=== PATIENT | female | born 1935 | race Caucasian/White ===

== ENCOUNTER 2022-04-13 13:02 | Inpatient (IN) | payer MEDICARE, BC ==
[~2022-04-13] VITALS: Ht 154.9 cm; Wt 97.1 kg
[2022-04-13] MEDS ORDERED: TEMAZEPAM 7.5 MG CAPSULE PO PRN (13:30)
[2022-04-13] MEDS ORDERED: MAG HYDROX/AL HYDROX/SIMETH 30 ML LIQUID UDC PO PRN (13:30)
[2022-04-13] MEDS ORDERED: MAGNESIUM HYDROXIDE 30 ML LIQUID UDC PO PRN (13:30)
[2022-04-13] MEDS ORDERED: ACETAMINOPHEN 325 MG TABLET PO PRN (13:30)
[2022-04-13] MEDS ORDERED: FURO-152 PO (13:45)
[2022-04-13] MEDS ORDERED: LISI1TAB55 PO (13:45)
[2022-04-13] MEDS ORDERED: CEPH500C2 PO (13:45)
[2022-04-13] MEDS ORDERED: RIVA20TA PO (13:45)
--- NOTE | 2022-04-13 14:21 | NUR ---
Pt arrived to unit at this time as a direct admit from [facility] ER in [place] approved by BISHOP Cannon. Pt has not been medically cleared by our hospital ER. Arrived on ambulance gurney accompanied by 3 microsoft architect. Pt on a 72hr hold for GD due to increase confusion and paranoia. Pt is calm and cooperative. Pleasant upon approach. Pt states she is admitted to the psychiatric unit "because i guess i ramble too much and can get confused, but otherwise, im not really sure." Denies suicidal and homicidal ideations. Contracts for safety at this time. Denies pain or discomfort. Able to make all need known. In no acute distress.
[2022-04-13] MEDS: HYDROCHLOROTHIAZIDE 12.5 MG CAPSULE PO SCH (15:11)
[2022-04-13] MEDS: CEphaleXIN 500 MG CAPSULE PO SCH ×2 (15:11→20:24)
[2022-04-13 16:23] VITALS: BP 157/68
[2022-04-13] MEDS: ENSURE ENLIVE (VAN) 240 ML LIQUID PO SCH (16:39)
[2022-04-13] MEDS: RIVAROXABAN 10 MG TABLET PO SCH (17:25)
[2022-04-13 20:17] VITALS: BP 118/31
--- NOTE | 2022-04-14 02:19 | NUR ---
The patient is up and down during the night. A few times incontinent of urine. Request to watch TV at this time. The patient refuses PRN medications, but has been compliant with the antibiotic ordered for a UTI. The patient talks to herself, and is noted as slightly forgetful. The patient has not verbalized any delusion thoughts so far. Her affect is bright, but her insight as to why she is here is poor and the patient is disorganized and needs frequent reorientation and redirection. Safety stratiges are in place. Assistance is provided with ADLs.
[2022-04-14 07:32] LABS: BILIRUBIN,TOTAL 0.4 mg/dL (0.2-1.0); CREATININE 1.3 mg/dL (0.6-1.3); POTASSIUM 4.7 mmol/L (3.5-5.1); TOTAL PROTEIN, SERUM 6.9 g/dL (6.4-8.2)
[2022-04-14 07:55] VITALS: BP 151/53
[2022-04-14] MEDS: ENSURE ENLIVE (VAN) 240 ML LIQUID PO SCH ×2 (08:10→16:28)
[2022-04-14] MEDS: CEphaleXIN 500 MG CAPSULE PO SCH ×3 (08:10→16:28)
[2022-04-14] MEDS: LORAZEPAM 0.5 MG TABLET PO PRN (08:10)
[2022-04-14] MEDS: FUROSEMIDE 20 MG TABLET PO SCH (08:25)
[2022-04-14] MEDS: LISINOPRIL 20 MG TABLET PO SCH (08:26)
[2022-04-14] MEDS: HYDROCHLOROTHIAZIDE 12.5 MG CAPSULE PO SCH (09:30)
[2022-04-14] MEDS ORDERED: METO-356 PO (09:58)
[2022-04-14] MEDS: METOPROLOL SUCCINATE XL 25 MG TAB.SR.24H PO SCH (11:40)
[2022-04-14 17:45] VITALS: BP 144/51
[2022-04-14] MEDS: RIVAROXABAN 10 MG TABLET PO SCH (17:58)
--- NOTE | 2022-04-14 19:54 | NUR ---
RECEIVED PATIENT IN HER ROOM IN BED. SHE IS NOTED A/O X 2. SHE IS HYPERVERBAL, ANXIOUS AND AGITATED. POOR INSIGHT AND JUDGMENT IS NOTED TO THE REASON FOR HER ADMISSION TO MHU, STATED, "I DON'T WANT TO BE HERE. I DON'T NEED TO BE HERE. I AM LEAVING RIGHT NOW, CALL THE GALO THE BROUGHT ME HERE, TELL HIM I AM READY TO LEAVE". PATIENT REQUIRES REALITY CHECKS AND CONSTANT REDIRECTIONS. SHE STATED, "I WAS JUST A BIT LOUD, WHY MY DAUGHTER LEFT ME HERE?". PATIENT WAS REASSURED AND REDIRECTED. PO PRN ATIVAN WAS OFFERED BUT PATIENT DECLINED. WILL CONTINUE TO REASSURED PATIENT FOR HER SAFETY. SAFETY AND FALL PRECAUTIONS ARE IN PLACE. HIS V/S ARE STABLE. WILL CONTINUE TO MONITOR.
[2022-04-14 20:27] VITALS: BP 124/50
--- NOTE | 2022-04-15 00:45 | NUR ---
patient noted walking around her room, she is talking to herself. she is combing her hair and brushing her teeth. she thinks that it is 5am and that someone is going to pick her up at take her home. When redirected patient stated, "okay i will go to bed for i can't go back to sleep. i will wait here". patient was offered a "sleeping pill; however, he refused. she was advised that is only 1230am and that she needs to sleep. she agreed. will continue to monitor.
--- NOTE | 2022-04-15 06:27 | NUR ---
PATIENT SLEPT FOR APPROX 2.30 HRS THROUGH THE NIGHT. SHE WAS OBSERVED SITTING IN A CHAIR IN HER ROOM TALKING TO HERSELF. SHE HAS IMPAIRED INSIGHT AND JUDGMENT INTO HER ADMISSION INTO MHU. SHE APPEARS TO SUNDOWN. SHE STATED, "I NEED TO CALL THE [facility] SO THEY CAN COME AND PICK ME UP". "I DON'T NEED TO BE HERE. I WAS JUST LOUD AND THAT IS WHY MY DAUGHTER BROUGHT ME HERE BUT THIS IS THE WAY I TALK. DON'T YOU WANT TO RID OF ME, JUST CALL THE [facility] DO THEY CAN PICK ME UP AND TAKE ME HOME". PATIENT REQUIRED MULTIPLE REDIRECTION AND REASSURANCE. SHE PO PRN MEDICATION FOR INSOMNIA. WILL CONTINUE TO MONITOR.
[2022-04-15 07:30] VITALS: BP 140/62
[2022-04-15] MEDS: LISINOPRIL 20 MG TABLET PO SCH (08:45)
[2022-04-15] MEDS: FUROSEMIDE 20 MG TABLET PO SCH (08:45)
[2022-04-15] MEDS: CEphaleXIN 500 MG CAPSULE PO SCH ×3 (08:45→16:28)
[2022-04-15] MEDS: HYDROCHLOROTHIAZIDE 12.5 MG CAPSULE PO SCH (08:45)
[2022-04-15] MEDS: METOPROLOL SUCCINATE XL 25 MG TAB.SR.24H PO SCH (08:46)
[2022-04-15] MEDS: ENSURE ENLIVE (VAN) 240 ML LIQUID PO SCH ×2 (08:47→16:28)
--- NOTE | 2022-04-15 14:39 | NUR ---
LISA Initial Discharge Note: Pt currently resides at [address] [place] [address] ([phone]). LISA spoke with pt's daughter, Jen ([phone]) who stated that she is agreeable for pt to discharge to a residential facility. Jen asked for a facility near her home. LISA stated she can refer pt to [facility] in the same city. Jen is aware and agreeable. LISA informed Jen this casualty underwriter will confirm with Jen for pt's acceptance prior to discharge. LISA will continue to work with pt, Jen, and to ensure a safe and proper discharge plan.
[2022-04-15 15:07] VITALS: BP 160/47
[2022-04-15] MEDS: RIVAROXABAN 10 MG TABLET PO SCH ×2 (16:37→17:01)
[2022-04-15] MEDS: LORAZEPAM 0.5 MG TABLET PO PRN (17:40)
--- NOTE | 2022-04-15 17:52 | NUR ---
Received patient is AAO x3 verbalizer needs known ,selected medication , on antibiotic for UTI . patient believe she not belong here will be discharged home today.got agitated when she was told will placed on 5250 hold. Ativan given as ordered ,family at bedside visited .
[2022-04-15 20:00] VITALS: BP 123/35
--- NOTE | 2022-04-16 04:41 | NUR ---
GPS NOTES: Received patient in the dayroom, she is calm and quiet upon approached. She is forgetful, she is also at times talking to herself. She was offered PRN meds but refused. She slept most of the shift with no issues noted. Frequent monitoring observed for safety
[2022-04-16 08:30] VITALS: BP 130/57
[2022-04-16] MEDS: HYDROCHLOROTHIAZIDE 12.5 MG CAPSULE PO SCH (09:00)
[2022-04-16] MEDS: METOPROLOL SUCCINATE XL 25 MG TAB.SR.24H PO SCH (09:00)
[2022-04-16] MEDS: FUROSEMIDE 20 MG TABLET PO SCH (09:00)
[2022-04-16] MEDS: CEphaleXIN 500 MG CAPSULE PO SCH ×3 (09:00→17:22)
[2022-04-16] MEDS: LISINOPRIL 20 MG TABLET PO SCH (09:00)
[2022-04-16] MEDS: ENSURE ENLIVE (VAN) 240 ML LIQUID PO SCH ×2 (09:03→17:26)
--- NOTE | 2022-04-16 15:14 | NUR ---
Patient is only compliant with antibiotics, isolative, quiet, withdrawn, sociable when approached. Patient is self care. Emotional support provided. Fall and safety precautions implemented.
[2022-04-16 15:32] VITALS: BP 121/52
[2022-04-16] MEDS: RIVAROXABAN 10 MG TABLET PO SCH (17:37)
[2022-04-16 19:55] VITALS: BP 112/52
[2022-04-16] MEDS: DIVALPROEX 250 MG TABLET.DR PO SCH (20:19)
[2022-04-16] MEDS: DONEPEZIL 5 MG TABLET PO SCH (20:19)
--- NOTE | 2022-04-17 00:47 | NUR ---
Patient was compliant with the HS medications . It was endorsed from the dayshift that the patient has been refusing to take the Xarelto. This justowriter operator engaged in a long conversation with the patient and provided education and encouragement r/e the importance of not skipping that medication. The patient continued to refuse and made statement " I am 86 years old and I don't want to take any medications. My daughter wants me to take it , but I told her no and she had a fit." The patient does get forgetful and paranoid during the night. Safety stratiges are in place and continuing to monitor for compliance and to provide reorientation and reassurance when needed.
[2022-04-17 07:30] VITALS: BP 153/41
[2022-04-17] MEDS: CEphaleXIN 500 MG CAPSULE PO SCH ×3 (08:45→16:55)
[2022-04-17] MEDS: ENSURE ENLIVE (VAN) 240 ML LIQUID PO SCH ×2 (08:57→17:27)
[2022-04-17] MEDS: LISINOPRIL 20 MG TABLET PO SCH (08:57)
[2022-04-17] MEDS: FUROSEMIDE 20 MG TABLET PO SCH (08:57)
[2022-04-17] MEDS: DIVALPROEX 250 MG TABLET.DR PO SCH (08:57)
[2022-04-17] MEDS: HYDROCHLOROTHIAZIDE 12.5 MG CAPSULE PO SCH (08:57)
[2022-04-17] MEDS: METOPROLOL SUCCINATE XL 25 MG TAB.SR.24H PO SCH (08:58)
--- NOTE | 2022-04-17 10:35 | NUR ---
LISA Family Contact: SW spoke with pt's daughter, Jen ([phone]) and discussed pt's acceptance to [facility] located at [address] [place] [address] . Jen asked this public relations writer to also refer pt to [facility] ([phone]) for possible discharge plan. LISA stated she will discuss the discharge plan with the psychiatrist. Jen is aware and agreeable. Jen's questions and concerns were addressed.
--- NOTE | 2022-04-17 15:08 | NUR ---
Patient is pleasant, sociable, but only compliant with antibiotics. Pt. states "My BP is a little bit high but it's my normal range" "I don't need water pill. I go to the bathroom many times. It's enough" "I don't need Psych medications because my mind is cleared" "I don't need blood thinners. I don't have that problem anymore" Patient is in denial about her health. Patient is encourage to verbalize concerns. Fall and safety precautions implemented.
[2022-04-17 16:00] VITALS: BP 165/40
[2022-04-17] MEDS: RIVAROXABAN 10 MG TABLET PO SCH (17:38)
[2022-04-17 20:00] VITALS: BP 167/64
[2022-04-17] MEDS: DONEPEZIL 5 MG TABLET PO SCH (20:40)
[2022-04-17] MEDS: DIVALPROEX SPRINKLE 125 MG CAP.SPRINK PO SCH (21:00)
--- NOTE | 2022-04-18 05:20 | NUR ---
GPS NOTES: Patient is pleasant and cheerful when approached, forgetful at times. She refused depakote, said she doesn't need it and will talk to psychiatrist in the AM. Educated patient on the importance of med compliance. She still refused. She is selective with medications. She is self care and able to make her needs known. She slept well during shift. Closely monitoring observed.
[2022-04-18 07:30] VITALS: BP 144/48
[2022-04-18] MEDS: CEphaleXIN 500 MG CAPSULE PO SCH (08:39)
[2022-04-18] MEDS: LISINOPRIL 20 MG TABLET PO SCH (08:39)
[2022-04-18] MEDS: FUROSEMIDE 20 MG TABLET PO SCH (08:39)
[2022-04-18] MEDS: METOPROLOL SUCCINATE XL 25 MG TAB.SR.24H PO SCH (08:40)
[2022-04-18] MEDS: HYDROCHLOROTHIAZIDE 12.5 MG CAPSULE PO SCH (08:40)
[2022-04-18] MEDS: DIVALPROEX SPRINKLE 125 MG CAP.SPRINK PO SCH ×2 (08:57→21:00)
[2022-04-18] MEDS: ENSURE ENLIVE (VAN) 240 ML LIQUID PO SCH (08:58)
--- NOTE | 2022-04-18 12:19 | NUR ---
Gps/Customer Engagement Representative- Pleasant affect , stayed in the dinning room during meal , Dr Oliver was informed patient refusing to take depakote sprinkles as ordered, per patient she want Psychiatrist to talked to her daughter first. No behavioral issues noted had been cooperative and pleasant with the staff, interacting with her selected peers.
[2022-04-18] MEDS: GLUCERNA SHAKE 237 ML CAN PO SCH (13:37)
[2022-04-18] MEDS: PROTEIN SUPPLEMENT (PROSTAT) 30 ML LIQUID PO SCH ×2 (13:38→17:26)
--- NOTE | 2022-04-18 15:36 | NUR ---
Firearms Report: Bacteriologist Dairy completed and submitted a [employer] firearms report for 5150 grave disability certifications. A copy of report has been placed in patient chart.
--- NOTE | 2022-04-18 15:48 | NUR ---
LISA Family Contact: SW left a voicemail for pt's daughter, Jen ([phone]) for a call back regarding pt's treatment and discharge plan. LISA will continue to follow-up.
[2022-04-18 16:00] VITALS: BP 92/56
[2022-04-18] MEDS: RIVAROXABAN 10 MG TABLET PO SCH (17:44)
--- NOTE | 2022-04-18 17:45 | NUR ---
Gps/Pocket Stitcher- Explained and reviewed xarelto med. pt. refused, claimed she does not need it anymore, will informed .
[2022-04-18 20:14] VITALS: BP 161/50
[2022-04-18] MEDS: DONEPEZIL 5 MG TABLET PO SCH (21:00)
--- NOTE | 2022-04-18 22:30 | NUR ---
Received patient in her room sitting in a chair reading a book. she is noted A/O x 2, upon approached, she is hyperverbal. she stated, "I met with the county court judge on the computer screen. they say i don't sleep but i just get up to pee because i take my water pill so i need to use the toilet often at night but then i go back to bed. i don't understand why they keep me here. Any way, I know they mean well. My nephew was here today, he brought some clothes for me and i am happy..." Patient has a poor insight and judgment as to her admission to MHU. She refused Aricept and Depakote QHS. she stated, "i don't need those medications, i am fine". Patient was reassured for her safety. safety and fall precautions are in place. her V/S are stable, patient in no distress. SHe was given PO Fluids and snacks. she was later observed in the dinning area plying cards with two other clients. will continue to monitor.
[2022-04-19 07:30] VITALS: BP 154/59
[2022-04-19] MEDS: DIVALPROEX SPRINKLE 125 MG CAP.SPRINK PO SCH ×2 (09:00→21:00)
[2022-04-19] MEDS: PROTEIN SUPPLEMENT (PROSTAT) 30 ML LIQUID PO SCH ×2 (09:00→17:00)
[2022-04-19] MEDS: FUROSEMIDE 20 MG TABLET PO SCH (09:00)
[2022-04-19] MEDS: METOPROLOL SUCCINATE XL 25 MG TAB.SR.24H PO SCH (09:01)
[2022-04-19] MEDS: HYDROCHLOROTHIAZIDE 12.5 MG CAPSULE PO SCH (09:01)
[2022-04-19] MEDS: LISINOPRIL 20 MG TABLET PO SCH (09:02)
[2022-04-19] MEDS: GLUCERNA SHAKE 237 ML CAN PO SCH (09:03)
[2022-04-19 09:56] LABS: HEMATOCRIT 33.9 % (31.2-41.9); MEAN CORPUSCULAR VOLUME 90.1 fL (75.5-95.3); PLATELET COUNT (AUTO) 171 K/uL (179-408)
[2022-04-19 11:27] LABS: ALANINE AMINOTRANSFERASE 31 U/L (14-59); ALKALINE PHOSPHATASE 91 U/L (50-136); ASPARTATE AMINOTRANSFERASE 18 U/L (15-37); BILIRUBIN,TOTAL 0.5 mg/dL (0.2-1.0); CARBON DIOXIDE 29 mmol/L (21-32); CHLORIDE 103 mmol/L (98-107); CREATININE 1.4 mg/dL (0.6-1.3); GLUCOSE 143 mg/dL (74-106); POTASSIUM 4.2 mmol/L (3.5-5.1); TOTAL PROTEIN, SERUM 6.7 g/dL (6.4-8.2); UREA NITROGEN, BLOOD 35 mg/dL (7-18)
--- NOTE | 2022-04-19 12:29 | NUR ---
Gps/Hopper Feeder- Stayed in the activity room most of the morning, playing dominos with her selected peers. remains with hesitancy taking routine meds, but able to take after explaining each one, except still refusing to take her depakote. Pleasant affect
[2022-04-19 15:25] VITALS: BP 145/48
[2022-04-19] MEDS: RIVAROXABAN 10 MG TABLET PO SCH (16:49)
[2022-04-19 20:26] VITALS: BP 128/47
[2022-04-19] MEDS: DONEPEZIL 5 MG TABLET PO SCH (21:00)
--- NOTE | 2022-04-20 00:33 | NUR ---
Received patient in the day room. she is playing doyle with other clients. she is noted A/O x 2 to 3, she is calm and pleasant upon approached, she stated, "I am doing fine". She continue refusing Aricept and Depakote QHS. she stated, "I sleep well. my memory is good. i don't see why i have to take these kind of medications". patient was informed of the importance to comply with her medication regiment to improved her condition. Patient was reassured for her safety. safety and fall precautions are in place. her V/S are stable, patient in no distress. SHe was given PO Fluids and snacks. will continue to monitor.
--- NOTE | 2022-04-20 06:53 | NUR ---
patient slept for approx. 6.15 hrs through the night. she was able to shower this morning. She continue denying SI/HI/VH/AH. will continue to monitor.
[2022-04-20 07:30] VITALS: BP 141/43
[2022-04-20] MEDS: DIVALPROEX SPRINKLE 125 MG CAP.SPRINK PO SCH ×2 (09:00→21:04)
[2022-04-20] MEDS: LISINOPRIL 20 MG TABLET PO SCH (09:04)
[2022-04-20] MEDS: HYDROCHLOROTHIAZIDE 12.5 MG CAPSULE PO SCH (09:05)
[2022-04-20] MEDS: FUROSEMIDE 20 MG TABLET PO SCH (09:05)
[2022-04-20] MEDS: METOPROLOL SUCCINATE XL 25 MG TAB.SR.24H PO SCH (09:06)
[2022-04-20] MEDS: PROTEIN SUPPLEMENT (PROSTAT) 30 ML LIQUID PO SCH ×2 (09:07→17:00)
[2022-04-20] MEDS: GLUCERNA SHAKE 237 ML CAN PO SCH (09:08)
[2022-04-20 16:00] VITALS: BP 124/40
--- NOTE | 2022-04-20 16:23 | NUR ---
Gps/Per Diem Clerk- Lorena Hernandez CAR OILER, was in to see patient informed of patient's continued refusal to take xarelto po , aware of of patients' history of PE. Patient continue to interact with her selected peers, attended her group therapy, stayed in the activity room most of the day , making her needs known . Pleasant affect .
[2022-04-20] MEDS: RIVAROXABAN 10 MG TABLET PO SCH ×2 (18:00→21:02)
[2022-04-20 20:00] VITALS: BP 126/32
[2022-04-20] MEDS: DONEPEZIL 5 MG TABLET PO SCH (21:00)
--- NOTE | 2022-04-21 02:37 | NUR ---
Received patient at a table playing MoboFree with her peers. This senior copywriter, again, educated and encouraged the patient to take her PM medications. The patient was willing ,at that time,to take Xarelto and Depakote. This senior copywriter continues to offer support and assistance to the patient when needed. Positive reinforcement provided. Safety Stratiges are in place, and continuing to monitor the patients compliance.
[2022-04-21 07:30] VITALS: BP 126/39
[2022-04-21] MEDS: PROTEIN SUPPLEMENT (PROSTAT) 30 ML LIQUID PO SCH ×2 (09:00→17:00)
[2022-04-21] MEDS: METOPROLOL SUCCINATE XL 25 MG TAB.SR.24H PO SCH (09:00)
[2022-04-21] MEDS: DIVALPROEX SPRINKLE 125 MG CAP.SPRINK PO SCH ×2 (09:00→21:36)
[2022-04-21] MEDS: GLUCERNA SHAKE 237 ML CAN PO SCH (09:45)
[2022-04-21] MEDS: FUROSEMIDE 20 MG TABLET PO SCH (09:45)
[2022-04-21] MEDS: LISINOPRIL 20 MG TABLET PO SCH (09:45)
[2022-04-21] MEDS: HYDROCHLOROTHIAZIDE 12.5 MG CAPSULE PO SCH (09:45)
--- NOTE | 2022-04-21 15:58 | NUR ---
Gps/Head Soft Sugar Operator- Patients' daughter Naila Arriaga ([phone] came in to visit, brought more depends diapers and toiletries. Informed daughter patient had been inconsistent taking her routine med.. (xarelto ) reviewed with patient remy importance of her medications, verbalized understanding , she wants to make sure her Primary Medical Doctor (Dr Bernabe Abreu) [phone] is aware of her routine medications. Daughter also wants to talk to Dr Oliver , informed will make sure he gets her message.
[2022-04-21 16:00] VITALS: BP 141/46
[2022-04-21] MEDS: RIVAROXABAN 10 MG TABLET PO SCH (17:37)
[2022-04-21 20:18] VITALS: BP 113/48
[2022-04-21] MEDS: DONEPEZIL 5 MG TABLET PO SCH (21:00)
[2022-04-22 07:30] VITALS: BP 129/51
[2022-04-22] MEDS: DIVALPROEX SPRINKLE 125 MG CAP.SPRINK PO SCH ×2 (08:39→20:41)
[2022-04-22] MEDS: FUROSEMIDE 20 MG TABLET PO SCH (08:39)
[2022-04-22] MEDS: LISINOPRIL 20 MG TABLET PO SCH (08:40)
[2022-04-22] MEDS: HYDROCHLOROTHIAZIDE 12.5 MG CAPSULE PO SCH (08:40)
[2022-04-22] MEDS: METOPROLOL SUCCINATE XL 25 MG TAB.SR.24H PO SCH (08:41)
[2022-04-22] MEDS: PROTEIN SUPPLEMENT (PROSTAT) 30 ML LIQUID PO SCH ×2 (08:42→17:39)
[2022-04-22] MEDS: GLUCERNA SHAKE 237 ML CAN PO SCH (08:42)
--- NOTE | 2022-04-22 11:49 | NUR ---
SW SNF Referral: Physical Security Engineer faxed patient's referral packet including: History and Physical, Consultation, Progress Notes, Medication List and Labs to the following facilities for review and possible mcc placement per pt's daughterJen's request ([phone]): [facility] ([phone]) and spoke with Gianluca in admissions. F: [phone].
--- NOTE | 2022-04-22 15:38 | NUR ---
LISA Family Contact: LISA spoke with pt's daughter, Jen ([phone]) and discussed pt's pending acceptance to [facility] ([phone]). LISA stated this screen writer spoke with Gianluca in admissions who stated the file is still being reviewed. Jen is aware and agreeable.
[2022-04-22 15:40] VITALS: BP 135/52
--- NOTE | 2022-04-22 15:48 | NUR ---
GPS: Nursing Notes: Thought Disorder: Patient is awake and responding to her name, cooperative with nursing care, participating in therapeutic groups, interactive with her peers, following staff directions, stated "I am feeling fine..", compliant with her medications, A/Ox4, properly groomed, brighter affect, needs minimal assistance with ADL's, continue to monitor for safety, unable to formulate a viable plan for self care, continue with treatment plan.
[2022-04-22] MEDS: RIVAROXABAN 10 MG TABLET PO SCH (17:39)
[2022-04-22 20:14] VITALS: BP 113/63
[2022-04-22] MEDS: DONEPEZIL 5 MG TABLET PO SCH (20:41)
--- NOTE | 2022-04-23 06:29 | NUR ---
GPS: Pt.slept 6.30 last night. Calm,pleasant at this time. Denies SI/HI. Safe environment provided. Will continue to monitor.
[2022-04-23 07:30] VITALS: BP 149/58
[2022-04-23] MEDS: METOPROLOL SUCCINATE XL 25 MG TAB.SR.24H PO SCH (09:17)
[2022-04-23] MEDS: FUROSEMIDE 20 MG TABLET PO SCH (09:26)
[2022-04-23] MEDS: HYDROCHLOROTHIAZIDE 12.5 MG CAPSULE PO SCH (09:26)
[2022-04-23] MEDS: LISINOPRIL 20 MG TABLET PO SCH (09:26)
[2022-04-23] MEDS: DIVALPROEX SPRINKLE 125 MG CAP.SPRINK PO SCH ×2 (09:26→20:17)
[2022-04-23] MEDS: PROTEIN SUPPLEMENT (PROSTAT) 30 ML LIQUID PO SCH ×2 (09:27→16:23)
[2022-04-23] MEDS: GLUCERNA SHAKE 237 ML CAN PO SCH (09:27)
[2022-04-23 16:56] VITALS: BP 141/62
[2022-04-23] MEDS: RIVAROXABAN 10 MG TABLET PO SCH (17:09)
--- NOTE | 2022-04-23 17:47 | NUR ---
GPS: Nursing Notes: Thought Disorder: Patient is awake and responding to her name, cooperative with nursing care, compliant with her medications, interactive with peers, participating in therapeutic groups, brighter affect, A/Ox3, properly groomed, unable to formulate a viable plan for self care, continue to monitor for safety, continue with treatment plan.
[2022-04-23 20:07] VITALS: BP 116/50
[2022-04-23] MEDS: DONEPEZIL 5 MG TABLET PO SCH (20:17)
[2022-04-24 07:30] VITALS: BP 134/46
[2022-04-24] MEDS: PROTEIN SUPPLEMENT (PROSTAT) 30 ML LIQUID PO SCH ×2 (09:00→17:00)
[2022-04-24] MEDS: GLUCERNA SHAKE 237 ML CAN PO SCH (09:00)
--- NOTE | 2022-04-24 10:47 | NUR ---
LISA Family Contact: LISA returned pt's daughter's, Jen's ([phone]) call and discussed pt's pending acceptance to [facility] ([phone]). LISA stated this fiction and nonfiction writer prose received a call from Gianluca in admissions who stated he is waiting for an answer from the director of marketing, Monika. Jen is aware the acceptance is pending. Jen informed this fiction and nonfiction writer prose that she would like to speak to the assigned psychiatrist tomorrow morning. Jen informed this fiction and nonfiction writer prose that she will be bringing a document from her chronometer assembler and adjuster stating that the pt is no longer able to take care of her own matters. This SW informed Jen that this fiction and nonfiction writer prose will communicate her request to the psychiatrist in the morning and update her.
[2022-04-24] MEDS: FUROSEMIDE 20 MG TABLET PO SCH (11:29)
[2022-04-24] MEDS: DIVALPROEX SPRINKLE 125 MG CAP.SPRINK PO SCH ×2 (11:29→20:08)
[2022-04-24] MEDS: LISINOPRIL 20 MG TABLET PO SCH (11:31)
[2022-04-24] MEDS: METOPROLOL SUCCINATE XL 25 MG TAB.SR.24H PO SCH (11:41)
[2022-04-24] MEDS: HYDROCHLOROTHIAZIDE 12.5 MG CAPSULE PO SCH (11:41)
[2022-04-24 16:00] VITALS: BP 126/36
[2022-04-24] MEDS: RIVAROXABAN 10 MG TABLET PO SCH (18:08)
[2022-04-24] MEDS: DONEPEZIL 5 MG TABLET PO SCH (20:08)
[2022-04-24 21:09] VITALS: BP 117/52
--- NOTE | 2022-04-25 06:41 | NUR ---
GPS: Pt.slept 8.15 last night. Currently in dining room area watching TV. Denies pain when asked. No new behavioral problems exhibited. Safe environment provided. Will continue to monitor.
[2022-04-25 07:30] VITALS: BP 135/48
[2022-04-25] MEDS: PROTEIN SUPPLEMENT (PROSTAT) 30 ML LIQUID PO SCH ×2 (09:00→17:00)
[2022-04-25] MEDS: METOPROLOL SUCCINATE XL 25 MG TAB.SR.24H PO SCH (09:00)
[2022-04-25] MEDS: FUROSEMIDE 20 MG TABLET PO SCH (09:09)
[2022-04-25] MEDS: LISINOPRIL 20 MG TABLET PO SCH (09:10)
[2022-04-25] MEDS: HYDROCHLOROTHIAZIDE 12.5 MG CAPSULE PO SCH (09:11)
[2022-04-25] MEDS: DIVALPROEX SPRINKLE 125 MG CAP.SPRINK PO SCH ×2 (09:16→20:09)
[2022-04-25] MEDS: GLUCERNA SHAKE 237 ML CAN PO SCH (09:20)
--- NOTE | 2022-04-25 14:54 | NUR ---
Gps/Donor Services Technician- Attending her group therapy, participating, interacting with her peers. Idalmis PLANT MAINTENANCE WORKER in to see patient, informed pt. not taking metoprolod XL anymore., will review .
--- NOTE | 2022-04-25 15:36 | NUR ---
LISA Family Contact: LISA contacted pt's daughter's, Jen ([phone]) and left a voicemail regarding Jen's request of a letter of incompetence for the pt. LISA informed Jen in the voicemail that this senior copywriter discussed the request with this SW's director. LISA informed Jen that we have to wait to hear back from the Doctor. LISA also informed Jen that this senior copywriter is still waiting to hear back from [facility]. LISA stated that the director, Monika from [facility] stated they are reviewing and will contact this senior copywriter with updates by tomorrow morning. LISA stated that pt does also have [facility] as an additional accepting facility from previous discussion.
[2022-04-25 16:30] VITALS: BP 129/49
[2022-04-25] MEDS: RIVAROXABAN 10 MG TABLET PO SCH (17:15)
[2022-04-25] MEDS: DONEPEZIL 5 MG TABLET PO SCH (20:08)
[2022-04-25 20:28] VITALS: BP 151/44
--- NOTE | 2022-04-26 06:41 | NUR ---
GPS: Pt.slept 10.15 last night. Calm,cooperative and interacts with her peers. Re-assured and re-directed prn. Safe environment provided. Will continue to monitor.
[2022-04-26 07:30] VITALS: BP 134/49
[2022-04-26] MEDS: DIVALPROEX SPRINKLE 125 MG CAP.SPRINK PO SCH ×3 (08:10→20:36)
[2022-04-26] MEDS: LISINOPRIL 20 MG TABLET PO SCH (08:24)
[2022-04-26] MEDS: FUROSEMIDE 20 MG TABLET PO SCH (08:25)
[2022-04-26] MEDS: HYDROCHLOROTHIAZIDE 12.5 MG CAPSULE PO SCH (08:25)
[2022-04-26] MEDS: METOPROLOL SUCCINATE XL 25 MG TAB.SR.24H PO SCH (09:00)
[2022-04-26] MEDS: PROTEIN SUPPLEMENT (PROSTAT) 30 ML LIQUID PO SCH ×2 (09:00→16:49)
[2022-04-26] MEDS: GLUCERNA SHAKE 237 ML CAN PO SCH (09:02)
--- NOTE | 2022-04-26 14:56 | NUR ---
LISA Family Contact: LISA contacted pt's daughter's, Jen ([phone]) and discussed pt's updates. LISA stated that this selling underwriter has not yet heard from the contact center director, ([phone]). LISA informed Jen that this selling underwriter spoke with Monika this morning regarding the time sensitive importance of the facilities decision regarding the continuation of care for the pt at their memory care unit. Jen is aware this selling underwriter is still waiting after multiple attempts and voicemails. Jen provided an additional location called [facility] P:([phone]) F:([phone]) for this SW to refer the clinicals to for possible discharge lcoation on Friday. Jen is aware that pt has a discharge order of Friday to either a [facility] that accepts the pt or to [facility] that pt is already accepted to. LISA also informed Jen per her request that the pt's psychiatrist cannot sign a letter of incompetence due to the pt being competent at this time. LISA explained the residential facility process and informed Jen that she can change the pt's facility in the event that the pt is not adjusting well. Jen appeared understanding. Jen requested to speak with either Dr. Oliver or Dr. Godinez by Friday. LISA informed Jen that this selling underwriter will leave a note with nursing for the Doctor to be notified to contact Jen. Jen was appreciative of this writers time and assistance.
--- NOTE | 2022-04-26 15:53 | NUR ---
SNF Referral: Post Splitter faxed patient's referral packet including: History and Physical, Consultation, Progress Notes, Medication List and Labs to the following facilities for review and possible longterm placement: [facility] per pt's daughter Jen's request. P: ([phone]) F:[phone]).
--- NOTE | 2022-04-26 16:20 | NUR ---
Gps/Gini Yoo (pt's.daughter) called wants to make sure patient is not taking metoprolol anymore, , claimed it was stopped when she went to the Hospital, r/t HR was very low . Informed , Idalmis FREDERICK was informed of her concerns yesterday,. Patient did not received metoprolol today.
[2022-04-26 16:53] VITALS: BP 157/48
[2022-04-26] MEDS: RIVAROXABAN 10 MG TABLET PO SCH (17:36)
[2022-04-26 19:53] VITALS: BP 143/48
[2022-04-26] MEDS: DONEPEZIL 5 MG TABLET PO SCH (20:36)
--- NOTE | 2022-04-27 03:02 | NUR ---
Received patient in the day room working a puzzle. Alert and oriented. Medication compliant . Some assistants needed with ADLs. This patient appears less paranoid about taking medications and less forgetful than observed previously by this pattern chart writer. Safety stratiges are in place, possible discharge noted for Friday.
[2022-04-27 07:48] VITALS: BP 125/34
[2022-04-27] MEDS: DIVALPROEX SPRINKLE 125 MG CAP.SPRINK PO SCH ×2 (08:49→20:09)
[2022-04-27] MEDS: FUROSEMIDE 20 MG TABLET PO SCH (08:49)
[2022-04-27] MEDS: LISINOPRIL 20 MG TABLET PO SCH (08:50)
[2022-04-27] MEDS: HYDROCHLOROTHIAZIDE 12.5 MG CAPSULE PO SCH (08:50)
[2022-04-27] MEDS: GLUCERNA SHAKE 237 ML CAN PO SCH (08:50)
[2022-04-27] MEDS: PROTEIN SUPPLEMENT (PROSTAT) 30 ML LIQUID PO SCH ×2 (08:51→16:06)
[2022-04-27] MEDS: METOPROLOL SUCCINATE XL 25 MG TAB.SR.24H PO SCH (08:51)
--- NOTE | 2022-04-27 14:01 | NUR ---
GPS: Nursing Notes: Thought Disorder: Patient is awake and responding to her name, cooperative with nursing care, compliant with her medications, participating in therapeutic groups, interactive with peers, completed her puzzle game this AM, needs minimal assistance with ADL's, unable to formulate a viable plan for self care, continue to monitor for safety, continue with treatment plan.
[2022-04-27 16:26] VITALS: BP 154/44
[2022-04-27] MEDS: RIVAROXABAN 10 MG TABLET PO SCH (17:04)
[2022-04-27 19:59] VITALS: BP 157/50
[2022-04-27] MEDS: DONEPEZIL 5 MG TABLET PO SCH (20:09)
--- NOTE | 2022-04-28 04:44 | NUR ---
Patient slept 5.30 hours. Up early for a shower. No changes from the previous night. Safety stratiges in place .
[2022-04-28 07:41] VITALS: BP 140/38
[2022-04-28] MEDS: GLUCERNA SHAKE 237 ML CAN PO SCH (08:52)
[2022-04-28] MEDS: HYDROCHLOROTHIAZIDE 12.5 MG CAPSULE PO SCH ×2 (08:52→12:29)
[2022-04-28] MEDS: FUROSEMIDE 20 MG TABLET PO SCH (08:52)
[2022-04-28] MEDS: LISINOPRIL 20 MG TABLET PO SCH ×2 (08:52→12:30)
[2022-04-28] MEDS: DIVALPROEX SPRINKLE 125 MG CAP.SPRINK PO SCH ×2 (08:52→20:05)
[2022-04-28] MEDS: PROTEIN SUPPLEMENT (PROSTAT) 30 ML LIQUID PO SCH ×2 (08:53→17:14)
[2022-04-28] MEDS: METOPROLOL SUCCINATE XL 25 MG TAB.SR.24H PO SCH (08:53)
--- NOTE | 2022-04-28 11:32 | NUR ---
GPS: Nursing Notes: 5250 [facility] Request: Staff give a copy of 5250 to patient, Staff explained 5250. Staff informed patient that a certification review hearing will be held within four days and patient's rights advocate will call to provide assistance and preparing her for the hearing. The court has been notified of 5250 via [employer] on this day. Addendum: 04/29/22 at 1022 by ALEX HO LVN GPS: Nursing Notes: 5270 [facility] Request: Above charting is wrong, the request is for 5270 [facility], requested via [employer] on 04/28/22 at 11:32.
--- NOTE | 2022-04-28 13:36 | NUR ---
GPS: Nursing Notes: Thought Disorder: Patient is awake and responding to her name, cooperative with nursing care, compliant with her medications, following staff directions, participating in therapeutic groups, A/Ox3, interactive with her peers, unable to formulate a viable plan for self care, continue to monitor for safety, continue with treatment plan.
[2022-04-28 16:08] VITALS: BP 138/40
[2022-04-28] MEDS: RIVAROXABAN 10 MG TABLET PO SCH (17:15)
[2022-04-28 19:46] VITALS: BP 120/42
[2022-04-28] MEDS: DONEPEZIL 5 MG TABLET PO SCH (20:05)
--- NOTE | 2022-04-29 06:50 | NUR ---
GPS: Pt.slept 6.30 last night. Calm and cooperative with her plan of care. No new behavioral problems exhibited. Safe environment provided. Re-assured prn.
[2022-04-29 07:28] VITALS: BP 144/47
[2022-04-29] MEDS: FUROSEMIDE 20 MG TABLET PO SCH (08:31)
[2022-04-29] MEDS: DIVALPROEX SPRINKLE 125 MG CAP.SPRINK PO SCH ×2 (08:31→20:24)
[2022-04-29] MEDS: GLUCERNA SHAKE 237 ML CAN PO SCH (08:31)
[2022-04-29] MEDS: LISINOPRIL 20 MG TABLET PO SCH (08:31)
[2022-04-29] MEDS: HYDROCHLOROTHIAZIDE 12.5 MG CAPSULE PO SCH (08:31)
[2022-04-29] MEDS: PROTEIN SUPPLEMENT (PROSTAT) 30 ML LIQUID PO SCH ×2 (08:32→17:23)
[2022-04-29] MEDS: METOPROLOL SUCCINATE XL 25 MG TAB.SR.24H PO SCH (08:32)
--- NOTE | 2022-04-29 10:05 | NUR ---
LISA Family Contact: LISA returned pt's daughter's, Jen's call ([phone]) and discussed pt's current status and discharge update. LISA informed Jen that this selling underwriter will refer pt to the locations that Jen provided for this SW in previous voicemail. LISA informed Jen that this selling underwriter will update her by the end of today with a discharge update. LISA informed Jen that if the pt does not accepted to the following referrals given by Jen, the pt still has the accepting facility to [facility] as previously agreed by Jen. LISA stated that at discharge, if pt does not have Jen's requested facilities accepting, we do need to move forward with [facility]. Jen is aware and agreeable.
--- NOTE | 2022-04-29 10:42 | NUR ---
SNF Referral: Field Artillery Basic faxed patient's referral packet including: History and Physical, Consultation, Progress Notes, Medication List and Labs to the following facilities for review and possible fci placement: [facility] ([phone]) F: ([phone]) and spoke with Tamra in admissions per pt's daughter's recommendation.
--- NOTE | 2022-04-29 10:46 | NUR ---
SNF Referral: SW contacted [facility] ([phone]) and left a voicemail for Eloise in admissions regarding pt's referral to their facility upon discharge per pt's daughter's Jen's request.
[2022-04-29 11:13] LABS: HEMATOCRIT 31.3 % (31.2-41.9); MEAN CORPUSCULAR HEMOGLOBIN 30.1 uug (24.7-32.8); MEAN CORPUSCULAR VOLUME 89.3 fL (75.5-95.3); PLATELET COUNT (AUTO) 177 K/uL (179-408)
[2022-04-29 11:33] LABS: BILIRUBIN,TOTAL 0.4 mg/dL (0.2-1.0); CREATININE 1.3 mg/dL (0.6-1.3); POTASSIUM 4.4 mmol/L (3.5-5.1); TOTAL PROTEIN, SERUM 6.8 g/dL (6.4-8.2)
[2022-04-29 12:15] LABS: *BILIRUBIN,URIN NEGATIVE (NEGATIVE); *BLOOD, URINE NEGATIVE (NEGATIVE); *CLARITY,URINE CLEAR (CLEAR); *COLOR,URINE YELLOW (YELLOW); *KETONES,URINE NEGATIVE (NEGATIVE); *UROBILINOGEN,URINE 0.2 E.U./dl (NORMAL); LEUKOCYTE ESTERASE ,URINE 2+ (NEGATIVE); NITRITE, URINE NEGATIVE (NEGATIVE); UGLUCOSE NEGATIVE (NEGATIVE)
[2022-04-29 12:38] LABS: BACTERIA,URINE FEW /HPF (NONE SEEN); RBC,URINE 0-3 /HPF (0-3); SQUAMOUS EPITHELIAL CELL,UR MODERATE /HPF (NONE SEEN)
--- NOTE | 2022-04-29 15:41 | NUR ---
SW Referral Contact update: Tamra from [facility] ([phone]) returned this radio script writer's call and stated that the cannot accept the pt at this time due to no bed availability.
--- NOTE | 2022-04-29 15:45 | NUR ---
SNF Referral: LISA contacted [facility] the [facility] ([phone]) and left a voicemail for Eloise in admissions regarding pt's referral to their facility upon discharge per pt's daughter's Jen's request. LISA stated int he voicemail that this technical writer and editor will be available until 4:30pm today.
[2022-04-29 16:16] VITALS: BP 127/33
--- NOTE | 2022-04-29 16:21 | NUR ---
LISA Family Contact: LISA contacted pt's daughter, Jen ([phone]) to inform her of pt's postponed discharge from 04/30/22 to 05/01/22. LISA also informed pt that Tamra from [facility] stated they cannot take the pt due to no bed availability. LISA informed Jen that this physician underwriter left two voicemails for Eloise in admissions at [facility] the [facility] and will follow-up again tomorrow. LISA restated pt's backup accepting facility to [facility]. Jen is aware and agreeable with the current plan and stated she will provide additional places for this physician underwriter tomorrow for the pt.
--- NOTE | 2022-04-29 16:31 | NUR ---
GPS: Nursing Notes: Thought Disorder: Patient is awake and responding to her name, participating in therapeutic groups, A/Ox3, cooperative with nursing care, compliant with his medications, following staff directions, interactive with peers, less disorganized, less paranoid, continue to be compliant with her medications, unable to formulate a viable plan for self care, continue to monitor for safety, continue with treatment plan.
[2022-04-29] MEDS: RIVAROXABAN 10 MG TABLET PO SCH (17:22)
[2022-04-29 19:53] VITALS: BP 142/52
[2022-04-29] MEDS: DONEPEZIL 5 MG TABLET PO SCH (20:24)
[2022-04-30 07:35] VITALS: BP 111/48
[2022-04-30] MEDS: HYDROCHLOROTHIAZIDE 12.5 MG CAPSULE PO SCH (08:22)
[2022-04-30] MEDS: DIVALPROEX SPRINKLE 125 MG CAP.SPRINK PO SCH ×2 (08:22→20:06)
[2022-04-30] MEDS: FUROSEMIDE 20 MG TABLET PO SCH (08:22)
[2022-04-30] MEDS: GLUCERNA SHAKE 237 ML CAN PO SCH (08:25)
--- NOTE | 2022-04-30 08:25 | NUR ---
SW Discharge Update: Eloise in admissions from [facility] ([phone]) returned this flex o writer operator's call in a voicemail stating the fax number and to send the referral for review.
[2022-04-30] MEDS: LISINOPRIL 20 MG TABLET PO SCH (08:26)
[2022-04-30] MEDS: METOPROLOL SUCCINATE XL 25 MG TAB.SR.24H PO SCH (08:26)
[2022-04-30] MEDS: PROTEIN SUPPLEMENT (PROSTAT) 30 ML LIQUID PO SCH ×2 (08:26→17:37)
--- NOTE | 2022-04-30 08:37 | NUR ---
LISA SNF Referral: SW faxed patient's referral packet including: History and Physical, Consultation, Progress Notes, Medication List and Labs to the following facilities for review and possible half-way placement: [facility] ([phone]) and spoke with Eloise in admissions F:[phone]).
--- NOTE | 2022-04-30 09:47 | NUR ---
SW SNF Referral: SW faxed patient's referral packet including: History and Physical, Consultation, Progress Notes, Medication List and Labs to the following facilities for review and possible long term placement: [facility]. This SW spoke with LISA Cortez ([phone]) and Radha ([phone]) regarding pt's new referral for discharge on 05/01/22. F: [phone].
--- NOTE | 2022-04-30 14:23 | NUR ---
LISA Discharge Update: LISA spoke with Dana the social service director ([phone]) regarding pt's pending acceptance to their facility on 05/01/22. Chela stated there are logistics to still discuss with the daughter regarding paperwork and in person evaluation prior to a decision.
[2022-04-30 16:04] VITALS: BP 150/49
[2022-04-30] MEDS: RIVAROXABAN 10 MG TABLET PO SCH (17:36)
--- NOTE | 2022-04-30 19:02 | NUR ---
Patient is cooperative with care, pleasant, sociable, engage in group activities, compliant with medications. Pt. is encourage to verbalize concerns. Fall and safety precautions implemented.
[2022-04-30 19:54] VITALS: BP 143/45
[2022-04-30] MEDS: DONEPEZIL 5 MG TABLET PO SCH (20:06)
--- NOTE | 2022-04-30 20:30 | NUR ---
Received patient in the day room watching TV. she is noted A/O x 3 She is calm and pleasant upon approached. She is aware and agreeable with her impending discharged. patient was given PO fluids and snacks. V/S stable at this time. she is reassured for her safety. safety and fall precautions are in place. will continue to monitor.
[2022-05-01 07:30] VITALS: BP 136/48
[2022-05-01] MEDS: HYDROCHLOROTHIAZIDE 12.5 MG CAPSULE PO SCH (08:53)
[2022-05-01] MEDS: DIVALPROEX SPRINKLE 125 MG CAP.SPRINK PO SCH ×2 (08:53→20:24)
[2022-05-01] MEDS: FUROSEMIDE 20 MG TABLET PO SCH (08:54)
[2022-05-01] MEDS: LISINOPRIL 20 MG TABLET PO SCH (08:54)
[2022-05-01] MEDS: METOPROLOL SUCCINATE XL 25 MG TAB.SR.24H PO SCH (08:55)
[2022-05-01] MEDS: GLUCERNA SHAKE 237 ML CAN PO SCH (08:55)
[2022-05-01] MEDS: PROTEIN SUPPLEMENT (PROSTAT) 30 ML LIQUID PO SCH ×2 (08:56→17:24)
--- NOTE | 2022-05-01 12:35 | NUR ---
LISA Discharge Note: Pt will be discharged to [facility] located at [address] [place] [id number] ([phone]) via pts son-in-law, Minor Arriaga ([phone]). LISA spoke with country director, [place] ([phone]) and mental health social worker, pascual ([phone]) who state they are ready to accept the pt today. Pt is aware and agreeable with discharge plan. Pt daughter/DPOA, Jen ([phone]) is aware and agreeable with the discharge plan. Jen stated that her , Minor Arriaga ([phone]) will provide transportation for the pt between 2 and 3PM. Pt is alert and oriented x4, is unable to plan for self-care at this time. However, pt is willing to accept care at [facility]. Pt denies any suicidal or homicidal ideation. Pt will follow-up at the facility with a psychiatrist and psychologist located at [address] [place] [phone] ([phone]) via teletherapy. Pt will follow-up with injection maintenance technician, Dr. Woodson at the facility. Pt presents with calm mood and congruent affect. PHARMACY: [facility] ([phone]) [address] [facility] [facility].
--- NOTE | 2022-05-01 14:27 | NUR ---
Clinical SW Note: Per Nurse Maxine, report of pt's discharge was given to assistant boys track coach, [place] [phone] for pt's discharge to their facility today 05/01/22.
--- NOTE | 2022-05-01 14:28 | NUR ---
Clinical SW Note: Per Nurse Maxine, report of pt's discharge was given to assistant sales director, [place] [phone] at [facility] for pt's discharge to their facility today 05/01/22.
--- NOTE | 2022-05-01 15:15 | NUR ---
LISA Family Contact: LISA contacted pt's son-in-law, Minor Arriaga [phone] and left a voicemail to discuss Minor's estimated time of arrival for pt's discharge between 2 and 3PM. SW left contact information to return call.
--- NOTE | 2022-05-01 15:16 | NUR ---
LISA Family Contact: LISA contacted pt's son-in-law, leni powell ([phone]) and left a voicemail for a call back regarding leni's eta to [facility]. LISA left her contact number as well as nursing station number.
--- NOTE | 2022-05-01 15:18 | NUR ---
LISA Family Contact: LISA contacted pt's daughter, Jen ([phone]) and left a voicemail for a call back regarding her , Minor's eta to [facility] to provide transportation from [place] to [facility] today. LISA stated in the voicemail that this technical proposal writer left a voicemail for her inquiring about his eta to [facility] today.
[2022-05-01 16:00] VITALS: BP 129/35
[2022-05-01] MEDS: RIVAROXABAN 10 MG TABLET PO SCH (17:23)
[2022-05-01 20:09] VITALS: BP 148/46
[2022-05-01] MEDS: DONEPEZIL 5 MG TABLET PO SCH (20:24)
--- NOTE | 2022-05-02 06:38 | NUR ---
GPS: Pt.slept 7 hrs.last night. Currently in dining room area watching tv. Interacts with certain peers. Re-assured prn. Safe environment provided.
[2022-05-02 07:30] VITALS: BP 115/47
[2022-05-02 09:00] VITALS: BP 115/47
[2022-05-02] MEDS: METOPROLOL SUCCINATE XL 25 MG TAB.SR.24H PO SCH (09:00)
[2022-05-02] MEDS: LISINOPRIL 20 MG TABLET PO SCH (09:00)
[2022-05-02] MEDS: FUROSEMIDE 20 MG TABLET PO SCH (09:14)
[2022-05-02] MEDS: DIVALPROEX SPRINKLE 125 MG CAP.SPRINK PO SCH (09:14)
[2022-05-02] MEDS: HYDROCHLOROTHIAZIDE 12.5 MG CAPSULE PO SCH (09:15)
[2022-05-02] MEDS: PROTEIN SUPPLEMENT (PROSTAT) 30 ML LIQUID PO SCH (09:17)
--- NOTE | 2022-05-02 09:17 | NUR ---
LISA Family Contact: This SW contacted pt's daughter, Jen ([phone]) and left a voicemail stating that [place] ([phone]) from [facility] contacted this real estate underwriter yesterday evening at 4:29PM stating that they can no longer accept the pt at this time. LISA informed Jen that per previous conversations, this real estate underwriter will have to move forward with pt discharging to [facility] and rehab SNF located at [address] [place] [address] ([phone]) due to pt ready for discharge. LISA stated again that this real estate underwriter contact both her and her yesterday for follow-up and left voicemails. LISA provided the social workers contact info at [place] for further assistance and stated to feel free to this SW for further questions.
[2022-05-02] MEDS: GLUCERNA SHAKE 237 ML CAN PO SCH (09:18)
--- NOTE | 2022-05-02 09:39 | NUR ---
SW Discharge Update: Radha from [facility] care contacted this field underwriter and apologized for yesterday's poor communication on their team. Radha stated that pt was always accepted and it was poorly communicated to me. Radha stated pt is accepted and transportation will be provided at 10:30Am by local company truck driver Bryce. Radha stated family is aware, facility is expecting the pt and they have all of the paperwork they need from [place]. Radha confirmed they are ready for the pt today. This SW stated she appreciates the apology and and explanation and happy to know pt is welcome today. This SW informed Radha that this field underwriter will contact pt's daughter Jen to inform her that this SW and nursing is aware of the final discharge plan to [facility] and will proceed with discharge.
--- NOTE | 2022-05-02 09:47 | NUR ---
LISA Discharge Note: Pt will be discharged to [facility] located at [address] [place] [phone] ([phone]) via facility transportation by private vehicle transportation by team otr truck driver, Bryce at 10:30AM. LISA spoke with Radha at the facility who stated they are ready to accept the pt today. Pt is aware and agreeable with discharge plan. Pt daughter/DPOAJen ([phone]) is aware and agreeable with the discharge plan. Pt is alert and oriented x4, is unable to plan for self-care at this time. However, pt is willing to accept care at [facility]. Pt denies any suicidal or homicidal ideation. Pt will follow-up at the facility with a psychiatrist and psychologist located at [address] [place] [phone] ([phone]) via teletherapy. Pt will follow-up with front edger, Dr. Woodson at the facility. Pt presents with calm mood and congruent affect. PHARMACY: [facility] ([phone]) [address] [facility].
--- NOTE | 2022-05-02 12:32 | NUR ---
Received orders to discharge this patient to [facility] by private transportation. Patient was agreeable with discharge plans and signed all discharge documentation. All belongings were returned to the patient. Pt. denies SI/HI AH/VH, SOB, pain or any discomfort. Pt. is A/O X 4 to person, place. Pt. is pleasant, sociable, cooperative with nursing care and compliant with medications. Emotional support provided. Patient left the unit at 11:45. Fall and safety precautions implemented.
== END 2022-05-02 11:45 | DRG 885 ==
LOC: ER 13:07 → GPS 13:10
PROVIDERS: ADMIT Psychiatry & Neurology Psychiatry
DX: F29 Unspecified psychosis not due to a substance or known physiological condition (principal); F05 Delirium due to known physiological condition; I11.0 Hypertensive heart disease with heart failure; B95.1 Streptococcus, group B, as the cause of diseases classified elsewhere; N39.0 Urinary tract infection, site not specified; Z68.41 Body mass index [BMI] 40.0-44.9, adult; F02.A18 Dementia in other diseases classified elsewhere, mild, with other behavioral disturbance; E44.1 Mild protein-calorie malnutrition; E66.01 Morbid (severe) obesity due to excess calories; I50.9 Heart failure, unspecified; Z87.440 Personal history of urinary (tract) infections; Z86.711 Personal history of pulmonary embolism; Z88.2 Allergy status to sulfonamides; Z73.6 Limitation of activities due to disability; Z20.822 Contact with and (suspected) exposure to COVID-19; F39 Unspecified mood [affective] disorder; G30.9 Alzheimer's disease, unspecified
CPT/HCPCS: 36415; 71046; 80164; 85025; 87077; 87086; 93307; 97161; J3490